=== PATIENT | male | born 1935 | race Caucasian/White ===

== ENCOUNTER 2018-10-18 06:39 | Day surgery (SDC) | payer MEDICARE, BC, SELFPAY | END 2018-10-18 10:50 | disposition home or self-care (01) | PROVIDERS: Family Provider Internal Medicine; Visit Provider Surgery | DX: C18.2 Malignant neoplasm of ascending colon (principal); D64.9 Anemia, unspecified; K64.8 Other hemorrhoids; K20.9 Esophagitis, unspecified; K29.70 Gastritis, unspecified, without bleeding; K29.80 Duodenitis without bleeding; I10 Essential (primary) hypertension; Z79.891 Long term (current) use of opiate analgesic; Z79.82 Long term (current) use of aspirin; Z82.49 Family history of ischemic heart disease and other diseases of the circulatory system; Z83.3 Family history of diabetes mellitus; K21.9 Gastro-esophageal reflux disease without esophagitis | CPT/HCPCS: 43239; 45380; 74178; 82378; 82565; 84520; 87077; 88305 ×2; J2704; Q9967 ×2 ==

== ENCOUNTER → 2019-10-07 12:57 | Outpatient (BNVA) | payer MEDICARE, BC, SELFPAY | PROVIDERS: Family Provider Internal Medicine; Visit Provider Dermatology | DX: L82.1 Other seborrheic keratosis (principal); L57.0 Actinic keratosis; Z85.828 Personal history of other malignant neoplasm of skin | CPT/HCPCS: 17000; 17003; 99202; 99203 ==

== ENCOUNTER → 2022-11-17 13:09 | Outpatient (BNVA) | payer MEDICARE, SELFPAY | PROVIDERS: Family Provider Internal Medicine; Visit Provider Nurse Practitioner Family | DX: L85.3 Xerosis cutis (principal); D22.5 Melanocytic nevi of trunk; L81.4 Other melanin hyperpigmentation; L82.1 Other seborrheic keratosis; L57.8 Other skin changes due to chronic exposure to nonionizing radiation; L57.0 Actinic keratosis; L21.8 Other seborrheic dermatitis; S90.112A Contusion of left great toe without damage to nail, initial encounter; Y99.9 Unspecified external cause status | CPT/HCPCS: 17004; 99214 ==

== ENCOUNTER → 2023-10-24 09:01 | Outpatient (BNVA) | payer MEDICARE, SELFPAY | PROVIDERS: Family Provider Internal Medicine; Visit Provider Podiatrist Foot & Ankle Surgery | DX: S86.011A Strain of right Achilles tendon, initial encounter; S90.32XA Contusion of left foot, initial encounter; W23.0XXA Caught, crushed, jammed, or pinched between moving objects, initial encounter | CPT/HCPCS: 73610; 73630 ==

== ENCOUNTER 2023-10-24 10:51 | Outpatient (CLI) | payer MEDICARE, SELFPAY | END 2023-10-24 10:52 | disposition home or self-care (01) | LOC: SPT 10:53 | PROVIDERS: Family Provider Internal Medicine; Visit Provider Podiatrist Foot & Ankle Surgery | DX: Z46.89 Encounter for fitting and adjustment of other specified devices (principal); S99.911D Unspecified injury of right ankle, subsequent encounter; S99.921D Unspecified injury of right foot, subsequent encounter; S99.922D Unspecified injury of left foot, subsequent encounter; S86.011D Strain of right Achilles tendon, subsequent encounter; X58.XXXD Exposure to other specified factors, subsequent encounter | CPT/HCPCS: L4361 ==

== ENCOUNTER 2023-11-13 13:25 | Outpatient (CLI) | payer MEDICARE, SELFPAY ==
--- NOTE | 2023-11-13 13:45 | MR_ITS ---
WS: [id number] MRI RIGHT ANKLE WITHOUT CONTRAST. COMPARISON: Radiograph 10/24/2023 Multiplanar, multisequence imaging is performed without contrast. Markedly abnormal Achilles tendon. There is a fluid gap extending over a length of 1.8 cm. Fluid gap is centered 4.9 cm above the calcaneal insertion site. The additional Achilles tendon above and below the full-thickness fluid gap is abnormal also. Increased T2 signal throughout and additional areas o f intermediate signal probably due to fluid and blood from the recent injury. Tendinopathic changes i nvolving a large portion of the tendon on both sides of the tear. Redundant torn tendon is noted prox imal to the fluid gap. Tendon is markedly enlarged and edematous. Flexor and extensor tendons otherwise appear to be normal. There is no fluid in the tendon sheaths. T here is diffuse mild soft tissue edema surrounding the ankle. No acute fracture. There is a small kim unt of marrow edema in the anterior calcaneal process but no fracture. Mild narrowing of the tibiotal ar joint space. Anterior and posterior talofibular ligaments are intact. There is a small amount of f luid by the anterior talofibular ligament. Normal deltoid ligament. MR/MR ankle RT wo con* [id number] IMPRESSION: 1. Complete full-thickness tear with fluid gap distal Achilles tendon. Fluid g ap measures 1.8 cm and is centered 4.9 cm above the calcaneal insertion site. 2. The additional tendon on both sides of the fluid flap is markedly tendinopa thic. There is edema and thickening of the tendon with variable signal. 3. Small amount of marrow edema in the anterior calcaneal process but no fract ure. 4. Mild narrowing of the tibiotalar joint.
== END 2023-11-13 13:26 | disposition home or self-care (01) ==
LOC: RAD 13:25
PROVIDERS: Family Provider Internal Medicine; PCP Family Medicine; Visit Provider Podiatrist Foot & Ankle Surgery
DX: M65.271 Calcific tendinitis, right ankle and foot; S86.011A Strain of right Achilles tendon, initial encounter; X58.XXXA Exposure to other specified factors, initial encounter; R26.89 Other abnormalities of gait and mobility; Z91.81 History of falling; M25.371 Other instability, right ankle
CPT/HCPCS: 73721; 99213

== ENCOUNTER → 2023-12-20 13:10 | Outpatient (BNVA) | payer MEDICARE, SELFPAY | PROVIDERS: Family Provider Internal Medicine; PCP Family Medicine; Visit Provider Podiatrist Foot & Ankle Surgery | DX: Z91.81 History of falling (principal); M25.371 Other instability, right ankle; S86.011A Strain of right Achilles tendon, initial encounter; R26.89 Other abnormalities of gait and mobility; R26.9 Unspecified abnormalities of gait and mobility; X58.XXXA Exposure to other specified factors, initial encounter | CPT/HCPCS: 99213 ==

== ENCOUNTER → 2023-12-21 14:13 | Outpatient (BNVA) | payer MEDICARE, SELFPAY | PROVIDERS: Family Provider Internal Medicine; PCP Family Medicine; Visit Provider Nurse Practitioner Family | DX: L57.0 Actinic keratosis (principal); L82.0 Inflamed seborrheic keratosis; D18.01 Hemangioma of skin and subcutaneous tissue; L81.4 Other melanin hyperpigmentation; L57.8 Other skin changes due to chronic exposure to nonionizing radiation; Z85.828 Personal history of other malignant neoplasm of skin | CPT/HCPCS: 17000; 17110; 99213 ==

== ENCOUNTER → 2024-03-26 13:19 | Outpatient (BNVA) | payer MEDICARE, SELFPAY | PROVIDERS: Family Provider Internal Medicine; PCP Family Medicine; Visit Provider Podiatrist Foot & Ankle Surgery | DX: Z91.81 History of falling (principal); S86.011S Strain of right Achilles tendon, sequela; R26.9 Unspecified abnormalities of gait and mobility; X58.XXXS Exposure to other specified factors, sequela | CPT/HCPCS: 99213 ==